=== PATIENT | male | born 1945 | race Caucasian/White ===

== ENCOUNTER 2017-07-21 05:01 | Observation (INO) | payer MEDICARE, OTHER, SELFPAY ==
[2017-07-21] VITALS (8 sets, daily range): BP systolic 125–147; BP diastolic 63–90; PULSE 63–75; RESP 16–18; TEMP 36.9; O2SAT 95–96; BMI 26.2
--- NOTE | 2017-07-21 05:34 | RAD_ITS ---
STUDY: X-RAY - PELVIS REASON FOR EXAM: Male, 72 years old. Right upper leg pain following a recent fall. TECHNIQUE: One view of the pelvis was obtained. COMPARISON: None. FINDINGS: There is a non-specific bowel gas pattern. Metallic radiation seeds are seen within the prostate. There is narrowing with cortical sclerosis and osteophyte formation of the sacroiliac joint consistent with degenerative osteoarthritic changes. Normal visualized bilateral superior and inferior pubic rami. Normal pubic symphysis. Normal ischial tuberosities. Normal visualized right femoral head. Normal right acetabulum. There is mild articular joint space narrowing of the right hip. Normal visualized left femoral head. Normal left acetabulum. There is mild articular joint space narrowing of the left hip. RAD/Pelvis 1 or 2 Views IMPRESSION: Degenerative changes. Electronically Signed: David Lopez MD at 9:08 EDT Tel [phone], Service support ,
--- NOTE | 2017-07-21 05:34 | RAD_ITS ---
STUDY: X-RAY - RIGHT FEMUR REASON FOR STUDY: Male, 72 years old. Right upper leg pain following a recent fall. TECHNIQUE: Radiological exam, femur, minimum 2 views COMPARISON: None. FINDINGS: Normal visualized femur. Ossification/calcification overlying the greater trochanter of the proximal right femur suggestive of bursitis. Vascular calcification. There is evidence of radiation seeds within the prostate. RAD/Femur Min 2 Views IMPRESSION: Degenerative change of the right hip joint. Findings suggestive of calcific bursitis overlying the greater trochanter of the proximal right femur. Electronically Signed: David Lopez MD at 9:08 EDT Tel [phone], Service support ,
--- NOTE | 2017-07-21 05:42 | PCM.HP.STD ---
Problem List (1) Syncope Status: Acute Qualifiers: Syncope type: unspecified Qualified Code(s): R55 - Syncope and collapse (2) TIA (transient ischemic attack) Status: Chronic Qualifiers: Transient cerebral ischemia type: unspecified Qualified Code(s): G45.9 - Transient cerebral ischemic attack, unspecified (3) HTN (hypertension) Status: Chronic Qualifiers: Hypertension type: essential hypertension Qualified Code(s): I10 - Essential (primary) hypertension (4) HLD (hyperlipidemia) Status: Chronic Qualifiers: Hyperlipidemia type: unspecified Qualified Code(s): E78.5 - Hyperlipidemia, unspecified (5) Prostate cancer Status: Chronic History of Present Illness Date of Admission: 07/21/17 Chief Complaint: Syncopal event The patient is a 72 y/o M w/ PMHx: Hx TIA/?CVA, HTN, HLD, Prostate CA with recent radiation treatment who presents to the [facility] on 07/21/17 as direct admission from OSH ED following history of syncopal event while at the horse races, noted to have been carrying heavy loads (50 Lbs) up a hill several times and following completion sat down to rest, specifically his R side given recent fall and pain and was found later by a bystander, immediately awakening upon stimulation. The patient does not recall specific timeline in regards to how long he may have passed out. He denied any recent chest pain, pressure, dyspnea. He noted feeling mildly off but otherwise no specific complaint. He additionally notes history of recent fall at his home ~ 3-4 days prior, slipping on his outdoor steps (2 steps, top step) secondary to recent rain and fall onto his R hip and R lateral leg at that time with ongoing pain to the region, noting this pain was severe worse following all the recent work he had performed and when he sat down it was to rest his RLE. At the OSH ED he was evaluated with stable VS T AF HR 68, RR 16, BP 167/80, 97% on RA, CBC Hgb 12.7, HCT 38.1, MCV 92, CMP BUN/Cr 17/1.26, bili 1.3, Trop <0.02, BNP 26, EKG incomplete RBB, SR, CT head without acute findings, CXR unremarkable. Past Medical History Past Medical History (Chronic Problems): Chronic Problems TIA (transient ischemic attack) (Chronic) HTN (hypertension) (Chronic) HLD (hyperlipidemia) (Chronic) Prostate cancer (Chronic) Allergies grass pollen-perennial rye, standar Allergy (Mild, Verified 06/02/15 17:12) Itching ITCHY WATERY EYES azithromycin [From Zithromax Z-Terrance] Allergy (Verified 06/02/15 17:12) Unknown lisinopril Adverse Reaction (Verified 06/02/15 17:51) Nausea Home Medications: Ambulatory Orders Medication Instructions Recorded Multivitamins,Ther W-Minerals 1 tablet PO DAILY 04/06/13 [Multivitamin With Minerals] Metoprolol(XL)Succ [Toprol Xl 25 mg PO DAILY 06/25/16 (Beta Bert)] Amlodipine [Norvasc] 5 mg PO DAILY #30 tablet 06/26/16 Atorvastatin Calcium [Lipitor] 80 mg PO QHS #30 tablet 06/26/16 Clopidogrel Bisulfate [Plavix] 75 mg PO DAILY #30 tablet 06/26/16 Surgical History: appendectomy, - - Removal kidney growth Psychiatric History: No pertinent psych hx Lives: Spouse/ Significant Other Smoking Status: Never smoker Tobacco Use: Chew - Chew tobacco history. Alcohol: None Drugs: None - *Family History Maternal History Items: No pertinent history Paternal History Items: Cancer - Father w/ History of of prostate CA Sibling History Items: - - Brother and Sister with history of Colon CA. Review of Systems Constitutional: Reports: Weakness, Fatigue. Denies: Chills, Fever, Weight Change HEENT: Denies: Head Aches, Sinus Congestion, Sinus Drainage Cardiovascular: Reports: Syncope. Denies: Chest Pain, Palpitations Respiratory: Denies: Cough, Shortness of breath at rest, Sputum production Gastrointestinal: Denies: Abdominal Pain, Nausea, Vomiting Genitourinary: Denies: Dysuria Musculoskeletal: Reports: Joint Pain, Joint stiffness, Joint swelling, Joint Tenderness, Leg Pain Skin: Denies: Rash, Wounds Neurological: Denies: Numbness, Tingling, Focal weakness Psychiatric: Denies: Anxiety, Depression, Homicidal Ideations, Suicidal Ideations Hematologic/ Lymphatic: Denies: Easy Bruising, Easy Bleeding VTE Information - Inpt Only VTE Present on Admission: No VTE Mechan Device Prophylaxis: SCD's VTE Pharm Prophylaxis ordered?: Yes Patient Problems: Active and Suspected Problems Syncope (Acute) Subjective: Seated upright in bed, NAD, notes ongoing pain right hip otherwise NAD, poor historian. Objective: Physical Examination: General: awake, alert, oriented x 3 and cooperative, seated upright in the bed in no apparent distress. Skin: normal color, turgor, no icterus, cyanosis. HEENT: AT/NC, EOMI, PERRLA, MMM, no carotid bruits or JVD noted. Lungs: CTA bilaterally, moderate effort, mild decrease BL bases, no rales, ronchi or wheezing. Heart: Regular rate and rhythm; no gallop, rub audible. Abdomen: soft, NTTP, ND, normal BS, no HSM. Extremities: no cyanosis, clubbing, s/p recent fall w/ severe pain to palpation R hip and R upper thigh region. Neurological: patient awake, alert, oriented x 3; cognitive function intact; pupils equally reactive to light and accomodation; cranial nerves II-XII grossly normal, moving all 4 extremities but limited RLE secondary to recent fall and severe pain, strength moderately globally decreased. Psychiatric: affect appears normal, no acute evidence of depressive or anxiety feelings. Assessment/Plan Active and Suspected Problems Syncope (Acute) The patient is a 72 y/o M w/ PMHx: Hx TIA/?CVA, HTN, HLD, Prostate CA with recent radiation treatment who presents to the [facility] on 07/21/17 as direct admission from OSH ED following history of syncopal event while at the horse races, noted to have been carrying heavy loads up a hill several times and following completion sat down to rest and was found later by a bystander, immediately awakening upon stimulation. (1) Syncopal Event: Unclear etiology, possibly secondary to pain associated iwth #2, OSH EKG ED w/ sinus rhythm w/ incomplete RBBB without evidence of acute ischemia, CXR w/ no acute cardiopulmonary findings, CT Head without acute findings, initial trop normal. Will admit to PCU, place on a monitored bed to assure no acute myocardial infarction with serial cardiac enzymes and EKGs. Will maintain on fall precautions, obtain admission orthostatic. Prior review of records notable for most recent presentation 06/2016 with TIA evaluation. At that time work-up had included 06/2016 ECHO w/ EF 65%, stage I diastolic dysfunction, trivial TVI, RVSP 39 mmHg, mild pulmonary HTN thus will not repeat and 06/2016 MRA neck w/ no evidence of significant steno-occlusive disease. Patient at that time had been transitioned asa-->plavix therapy. (2) Recent Fall, Mechanical w/ R hip/RLE pain: Ongoing pain, possible resulting in #1 as notable work with severe pain, noted to have occurred following slipping on his stairs at his home ~ 3-4 days prior, will obtain plain films R hip/pelvis and femur region, PRN pain regimen, fall precautions, PT/OT. (3) Hx TIA/?CVA: 2017 evaluation for TIA, MRI with no acute stroke at that time, transition from aspirin to Plavix, maintained on blood pressure regimen, (4) Hypertension: Continue home regimen including Norvasc, metoprolol, PRN hydralazine. (5) Hyperlipidemia: Continue home statin regimen. (6) Prostate CA: Recent diagnosis, started on radiation treatment, notes following w/ CC. (7) DVT Prophylaxis: SCDs, heparin. Code Visit OBSV E&M: 69478 Initial observation care L3
[2017-07-21] MEDS: 0.9% Normal Saline 1,000 ML 100 ML IV (06:25)
[2017-07-21 06:26] LABS: Magnesium 2.2 mg/dL (1.6-2.6)
[2017-07-21 06:34] LABS: Thyroid Stim Hormone (TSH) 1.92 uIU/mL (0.358-3.74)
[2017-07-21] MEDS: Multivitamins,Ther W-Minerals Tablet 1 TABLET PO (08:54)
[2017-07-21] MEDS: Clopidogrel Bisulfate 75 MG Tablet PO (08:55)
[2017-07-21] MEDS: amLODIPine 5 MG Tablet PO (08:55)
[2017-07-21] MEDS: Metoprolol(XL)Succ 25 MG Tablet PO (08:59)
[2017-07-21] MEDS: Acetaminophen 325 MG Tablet 650 MG PO (09:00)
--- NOTE | 2017-07-21 13:31 | PCM.DC ---
- Discharge Diagnoses Current Active Problems: Current Active and Chronic Problems Syncope (Acute) TIA (transient ischemic attack) (Chronic) HTN (hypertension) (Chronic) HLD (hyperlipidemia) (Chronic) Prostate cancer (Chronic) You will use the following diet at home:: Cardiac Your food should be the consistency of: Regular Your liquids should be the consistency of: Regular/Thin Discharge Activity: No Restrictions Allergies/Adverse Reactions: Allergies grass pollen-perennial rye, standar Allergy (Mild, Verified 06/02/15 17:12) Itching ITCHY WATERY EYES azithromycin [From Zithromax Z-Terrance] Allergy (Verified 06/02/15 17:12) Unknown lisinopril Adverse Reaction (Verified 06/02/15 17:51) Nausea Medications to take at Discharge Multivitamins,Ther W-Minerals [Multivitamin With Minerals] 1 tablet PO DAILY 04/06/13 Metoprolol(XL)Succ [Toprol Xl (Beta Bert)] 25 mg PO DAILY 06/25/16 Amlodipine [Norvasc] 5 mg PO DAILY #30 tablet 06/26/16 Atorvastatin Calcium [Lipitor] 80 mg PO QHS #30 tablet 06/26/16 Clopidogrel Bisulfate [Plavix] 75 mg PO DAILY #30 tablet 06/26/16 Primary Care Physician: Mack Lewis MD [Primary Care Provider] - Please follow up with your Primary Care Physician in: in 7 to 10 days.
--- NOTE | 2017-07-21 13:32 | PCM.DC.SUM ---
Discharge Date and Diagnosis - Problem List Patient Problems: Active and Suspected Problems Syncope (Acute) Date of Admission: 07/21/17 Date of Discharge: 07/21/17 - Primary Discharge Diagnosis Active and Suspected Problems Syncope (Acute) Orthostatic hypotension - Secondary Discharge Diagnosis Chronic Problems TIA (transient ischemic attack) (Chronic) HTN (hypertension) (Chronic) HLD (hyperlipidemia) (Chronic) Prostate cancer (Chronic) Hospital Course and Treatment Imaging Results: 07/21/17 05:34 Pelvis 1 or 2 Views [RAD] Urgent Xray Femur [Femur Min 2 Views] [RAD] Urgent Diagnostic Data Femur X-Ray 07/21/17 05:34 IMPRESSION: Degenerative change of the right hip joint. Findings suggestive of calcific bursitis overlying the greater trochanter of the proximal right femur. Electronically Signed: David Lopez MD at 9:08 EDT Tel [phone], Service support , Pelvis X-Ray 07/21/17 05:34 IMPRESSION: Degenerative changes. Electronically Signed: David Lopez MD at 9:08 EDT Tel [phone], Service support , MANAGER LIGHTING: none. Operations: None Procedures: None Summary of Care Provided: The patient is a 72 y/o M w/ PMHx: Hx TIA/?CVA, HTN, HLD, Prostate CA with recent radiation treatment who presents to the [facility] on 07/21/17 as direct admission from OSH ED following history of syncopal event while at the horse races, noted to have been carrying heavy loads up a hill several times and following completion sat down to rest and was found later by a bystander, immediately awakening upon stimulation. (1) Syncopal Event: Unclear etiology, possibly secondary to pain associated iwth #2, OSH EKG ED w/ sinus rhythm w/ incomplete RBBB without evidence of acute ischemia, CXR w/ no acute cardiopulmonary findings, CT Head without acute findings, initial trop normal. Will admit to PCU, place on a monitored bed to assure no acute myocardial infarction with serial cardiac enzymes and EKGs. Will maintain on fall precautions, obtain admission orthostatic. Prior review of records notable for most recent presentation 06/2016 with TIA evaluation. At that time work-up had included 06/2016 ECHO w/ EF 65%, stage I diastolic dysfunction, trivial TVI, RVSP 39 mmHg, mild pulmonary HTN thus will not repeat and 06/2016 MRA neck w/ no evidence of significant steno-occlusive disease. Patient at that time had been transitioned asa-->plavix therapy. (2) Recent Fall, Mechanical w/ R hip/RLE pain: Ongoing pain, possible resulting in #1 as notable work with severe pain, noted to have occurred following slipping on his stairs at his home ~ 3-4 days prior, will obtain plain films R hip/pelvis and femur region, PRN pain regimen, fall precautions, PT/OT. (3) Hx TIA/?CVA: 2017 evaluation for TIA, MRI with no acute stroke at that time, transition from aspirin to Plavix, maintained on blood pressure regimen, (4) Hypertension: Continue home regimen including Norvasc, metoprolol, PRN hydralazine. (5) Hyperlipidemia: Continue home statin regimen. (6) Prostate CA: Recent diagnosis, started on radiation treatment, notes following w/ CC. (7) DVT Prophylaxis: SCDs, heparin. Discharge Diet: - - cardiac Discharge Activity: No Restrictions Home Medications: Medications to take at Discharge Multivitamins,Ther W-Minerals [Multivitamin With Minerals] 1 tablet PO DAILY 04/06/13 Metoprolol(XL)Succ [Toprol Xl (Beta Bert)] 25 mg PO DAILY 06/25/16 Amlodipine [Norvasc] 5 mg PO DAILY #30 tablet 06/26/16 Atorvastatin Calcium [Lipitor] 80 mg PO QHS #30 tablet 06/26/16 Clopidogrel Bisulfate [Plavix] 75 mg PO DAILY #30 tablet 06/26/16 Primary Care Physician: Mack Lewis MD [Primary Care Provider] - Please follow up with your Primary Care Physician in: in 7 to 10 days. Disposition: Home Patient Condition:: Good Medical Necessity - Tobacco Use Smoking Status: Never smoker Tobacco Use: Chew Meaningful Use Info Meaningful Use Diagnoses (Choose all that apply): None applicable Code Visit OBSV E&M: 28698 Observation care discharge
--- NOTE | 2017-07-21 13:50 | DS.PCM_ITS ---
Discharge Date and Diagnosis - Problem List Patient Problems: Active and Suspected Problems Syncope (Acute) Date of Admission: 07/21/17 Date of Discharge: 07/21/17 - Primary Discharge Diagnosis Active and Suspected Problems Syncope (Acute) Orthostatic hypotension - Secondary Discharge Diagnosis Chronic Problems TIA (transient ischemic attack) (Chronic) HTN (hypertension) (Chronic) HLD (hyperlipidemia) (Chronic) Prostate cancer (Chronic) Hospital Course and Treatment Imaging Results: 07/21/17 05:34 Pelvis 1 or 2 Views [RAD] Urgent Xray Femur [Femur Min 2 Views] [RAD] Urgent Diagnostic Data Femur X-Ray 07/21/17 05:34 IMPRESSION: Degenerative change of the right hip joint. Findings suggestive of calcific bursitis overlying the greater trochanter of the proximal right femur. Electronically Signed: David Lopez MD at 9:08 EDT Tel [phone], Service support , Pelvis X-Ray 07/21/17 05:34 IMPRESSION: Degenerative changes. Electronically Signed: David Lopez MD at 9:08 EDT Tel [phone], Service support , COMMERCIAL DIRECTOR: none. Operations: None Procedures: None Summary of Care Provided: The patient is a 72 y/o M w/ PMHx: Hx TIA/?CVA, HTN, HLD, Prostate CA with recent radiation treatment who presents to the [facility] on 07/21/17 as direct admission from OSH ED following history of syncopal event while at the horse races, noted to have been carrying heavy loads up a hill several times and following completion sat down to rest and was found later by a bystander, immediately awakening upon stimulation. (1) Syncopal Event: Unclear etiology, possibly secondary to pain associated iwth #2, OSH EKG ED w/ sinus rhythm w/ incomplete RBBB without evidence of acute ischemia, CXR w/ no acute cardiopulmonary findings, CT Head without acute findings, initial trop normal. Will admit to PCU, place on a monitored bed to assure no acute myocardial infarction with serial cardiac enzymes and EKGs. Will maintain on fall precautions, obtain admission orthostatic. Prior review of records notable for most recent presentation 06/2016 with TIA evaluation. At that time work-up had included 06/2016 ECHO w/ EF 65%, stage I diastolic dysfunction, trivial TVI, RVSP 39 mmHg, mild pulmonary HTN thus will not repeat and 06/2016 MRA neck w/ no evidence of significant steno-occlusive disease. Patient at that time had been transitioned asa-->plavix therapy. (2) Recent Fall, Mechanical w/ R hip/RLE pain: Ongoing pain, possible resulting in #1 as notable work with severe pain, noted to have occurred following slipping on his stairs at his home ~ 3-4 days prior, will obtain plain films R hip/pelvis and femur region, PRN pain regimen, fall precautions, PT/OT. (3) Hx TIA/?CVA: 2017 evaluation for TIA, MRI with no acute stroke at that time , transition from aspirin to Plavix, maintained on blood pressure regimen, (4) Hypertension: Continue home regimen including Norvasc, metoprolol, PRN hydralazine. (5) Hyperlipidemia: Continue home statin regimen. (6) Prostate CA: Recent diagnosis, started on radiation treatment, notes following w/ CC. (7) DVT Prophylaxis: SCDs, heparin. Discharge Diet: - - cardiac Discharge Activity: No Restrictions Home Medications: Medications to take at Discharge Multivitamins,Ther W-Minerals [Multivitamin With Minerals] 1 tablet PO DAILY Metoprolol(XL)Succ [Toprol Xl (Beta Bert)] 25 mg PO DAILY 06/25/16 Amlodipine [Norvasc] 5 mg PO DAILY #30 tablet 06/26/16 Atorvastatin Calcium [Lipitor] 80 mg PO QHS #30 tablet 06/26/16 Clopidogrel Bisulfate [Plavix] 75 mg PO DAILY #30 tablet 06/26/16 Primary Care Physician: Mack Lewis MD [Primary Care Provider] - Please follow up with your Primary Care Physician in: in 7 to 10 days. Disposition: Home Patient Condition:: Good Medical Necessity - Tobacco Use Smoking Status: Never smoker Tobacco Use: Chew Meaningful Use Info Meaningful Use Diagnoses (Choose all that apply): None applicable Code Visit OBSV E&M: 36760 Observation care discharge
== END 2017-07-21 13:31 | disposition home or self-care (01) ==
PROVIDERS: Admitting Provider Family Medicine; Family Provider Internal Medicine; PCP Internal Medicine; Visit Provider Hospitalist
DX: I95.1 Orthostatic hypotension (principal); I10 Essential (primary) hypertension; E78.5 Hyperlipidemia, unspecified; C61 Malignant neoplasm of prostate; Z86.73 Personal history of transient ischemic attack (TIA), and cerebral infarction without residual deficits; Z92.3 Personal history of irradiation; Z91.81 History of falling; F17.220 Nicotine dependence, chewing tobacco, uncomplicated; M25.551 Pain in right hip; Z79.02 Long term (current) use of antithrombotics/antiplatelets; Z79.899 Other long term (current) drug therapy
CPT/HCPCS: 36415; 72170; 73552; 83735; 84443; 84484; 96360; 96361; 96372; 99218; J7030; G0378; G0379